=== PATIENT | male | born 1940 | race Caucasian/White ===

== ENCOUNTER 2020-07-15 07:20 | Inpatient (IN) | payer OTHER ==
[~2020-07-15] VITALS: Ht 182.9 cm; Wt 95.3 kg
[2020-07-15] VITALS (48 sets, daily range): BP systolic 98–146; BP diastolic 40–70
[2020-07-15] MEDS ORDERED: GLUC1TAB22 PO (10:14)
[2020-07-15] MEDS ORDERED: CHOL100079 OR ×2 (10:14)
[2020-07-15] MEDS ORDERED: CHOL20007 PO (10:14)
[2020-07-15] MEDS ORDERED: LOVA40TA72 PO (10:14)
[2020-07-15] MEDS ORDERED: CARV3.1240 PO (10:14)
[2020-07-15] MEDS ORDERED: LISI2.5T47 PO (10:14)
[2020-07-15] MEDS ORDERED: METF-370 PO (10:14)
[2020-07-15] MEDS ORDERED: ASPI325T4 PO (10:14)
[2020-07-15] MEDS ORDERED: hydrALAZINE HCL 20 MG/ML VL IV PRN (11:30)
[2020-07-15] MEDS ORDERED: PANTOPRAZOLE 40 MG TAB PO ONE (11:30)
[2020-07-15] MEDS ORDERED: DEXTROSE (50%) 50ML SYRG IV PRN (11:30)
[2020-07-15] MEDS ORDERED: SODIUM CHLORIDE 0.9% 1,000 ML IV SCH (11:30)
[2020-07-15] MEDS: InsuLIN REG 1unit/0.01ml Soln (100units/ml) SC SCH ×3 (11:30→21:16)
[2020-07-15] MEDS ORDERED: ALBUTEROL SULF 2.5 MG/0.5ML(0.5%) NEB SOLN NEB PRN (11:30)
[2020-07-15] MEDS ORDERED: ASPirin 81 mg TAB PO ONE (11:30)
[2020-07-15] MEDS ORDERED: FUROSEMIDE 20 MG TAB PO ONE (11:45)
[2020-07-15] MEDS ORDERED: POTASSIUM CHL 10 Meq TABLET PO ONE (11:45)
[2020-07-15] MEDS ORDERED: metFORMIN HYDROCHLORIDE 500 MG TAB PO ONE (11:45)
[2020-07-15] MEDS: DOPamine 1600MCG/ML D5W 250 ML IV SCH (12:16)
[2020-07-15] MEDS: ACCU-CHEK COMFORT CURVE STRIP VI SCH ×3 (12:17→21:16)
[2020-07-15] MEDS ORDERED: ASPI-498 PO (16:31)
[2020-07-15] MEDS ORDERED: LATA0.0020 RIGHTEYE (16:33)
[2020-07-15] MEDS ORDERED: TIMO0.5S32 EACHEYE (16:33)
[2020-07-15] MEDS ORDERED: IOHEXOL 350 MG/ML 100ML IJ ONE (17:33)
[2020-07-15] MEDS ORDERED: LIDOCAINE 2%HCL (LOCAL ANESTH.) INJ 20ML MDV ONE (17:33)
[2020-07-15] MEDS ORDERED: metFORMIN HYDROCHLORIDE 500 MG TAB PO SCH (18:00)
[2020-07-15 18:09] LABS: INR 1.04 (0.9-1.15)
[2020-07-15] MEDS ORDERED: ANGIOMAX 250 MG VIAL IV ONE (18:09)
[2020-07-15] MEDS ORDERED: fentaNYL CITRATE 100 MCG/2 ML VL ONE (18:10)
[2020-07-15] MEDS ORDERED: MIDAZOLAM HCL 1MG/1ML-2 ML VIAL ONE (18:10)
[2020-07-15] MEDS ORDERED: SODIUM CHL 0.9% 50 ML ONE (18:10)
[2020-07-15] MEDS ORDERED: VERAPAMIL 2.5MG/ML INJ 2ML VIAL IV ONE (18:10)
[2020-07-15] MEDS ORDERED: HEPARIN SODIUM (PORCINE) 5000 UNITS/ML 1ML VIAL ONE (18:10)
[2020-07-15] MEDS: ATORVASTATIN 20 MG TAB PO SCH (21:15)
[2020-07-16] VITALS (38 sets, daily range): BP systolic 93–153; BP diastolic 14–105
[2020-07-16] MEDS: DOPamine 1600MCG/ML D5W 250 ML IV SCH ×2 (01:43→11:45)
[2020-07-16 05:51] LABS: Basophils # (auto) 0.1 10 ^3/uL (0-0.2); Basophils % (auto) 0.9 % (0.0-2.0); Eosinophils # (auto) 0.5 10 ^3/uL (0-0.8); Eosinophils % (auto) 6.2 % (0.0-7.0); Hematocrit 45.2 % (41.0-53.0); Hemoglobin 15.4 g/dL (13.5-17.5); Lymphocytes # (auto) 1.5 10 ^3/uL (0.4-5.4); Lymphocytes % (auto) 18.4 % (10.0-50.0); Mean Corpuscular Hemoglobin 33.9 pg (28.0-32.0); Mean Corpuscular Hgb Conc. 34.1 g/dL (32.0-36.0); Mean Corpuscular Volume 99.5 fL (80.0-100.0); Monocytes # (auto) 0.6 10 ^3/uL (0-1.3); Monocytes % (auto) 7.4 % (0.0-12.0); Neutrophils # (auto) 5.6 10 ^3/uL (1.6-8.6); Neutrophils % (auto) 67.1 % (37.0-80.0); Nucleated Red Blood Cells % 0.2 %; Platelet Count (auto) 186 10^3/uL (140-450); Red Blood Cells 4.54 10^6/uL (4.5-5.90); Red Cell Distribution Width 14.6 % (11.8-14.3); White Blood Cell 8.3 10^3/uL (4.4-10.8)
[2020-07-16 06:09] LABS: Potassium 4.4 mmol/L (3.5-5.1)
[2020-07-16] MEDS: InsuLIN REG 1unit/0.01ml Soln (100units/ml) SC SCH ×4 (06:09→18:38)
[2020-07-16] MEDS: ACCU-CHEK COMFORT CURVE STRIP VI SCH ×4 (06:09→21:33)
[2020-07-16 06:21] LABS: Albumin 3.4 g/dL (3.4-5.0); BUN/Creatinine Ratio 17.2; Bilirubin, Total 2.4 mg/dL (0.2-1.0); Calcium 8.4 mg/dL (8.5-10.1); Total Protein 6.2 g/dL (6.4-8.2)
[2020-07-16] MEDS: POTASSIUM CHL 10 Meq TABLET PO SCH (09:23)
[2020-07-16] MEDS: ASPirin 81 mg TAB PO SCH (09:23)
[2020-07-16] MEDS: SOTALOL HCL 80 MG TAB PO SCH ×2 (09:24→21:32)
[2020-07-16] MEDS: PANTOPRAZOLE 40 MG TAB PO SCH (09:24)
[2020-07-16] MEDS: FUROSEMIDE 20 MG TAB PO SCH (09:25)
[2020-07-16] MEDS: CHOLECALCIFEROL (VITD3) 1,000UNIT=25mCg TAB PO SCH (09:25)
[2020-07-16] MEDS ORDERED: HEPARIN SODIUM (PORCINE) 5000 UNITS/ML 1ML VIAL ONE (21:18)
[2020-07-16] MEDS: ATORVASTATIN 20 MG TAB PO SCH (21:32)
[2020-07-16] MEDS: HEPARIN SODIUM (PORCINE) 5000 UNITS/ML 1ML VIAL SC SCH (21:35)
[2020-07-17] VITALS (15 sets, daily range): BP systolic 99–133; BP diastolic 40–99
[2020-07-17] MEDS: DOPamine 1600MCG/ML D5W 250 ML IV SCH ×2 (05:36→20:22)
[2020-07-17] MEDS: ACCU-CHEK COMFORT CURVE STRIP VI SCH ×4 (06:40→22:00)
[2020-07-17] MEDS: InsuLIN REG 1unit/0.01ml Soln (100units/ml) SC SCH ×4 (06:40→21:27)
[2020-07-17] MEDS: ASPirin 81 mg TAB PO SCH (09:35)
[2020-07-17] MEDS: POTASSIUM CHL 10 Meq TABLET PO SCH (09:35)
[2020-07-17] MEDS: CHOLECALCIFEROL (VITD3) 1,000UNIT=25mCg TAB PO SCH (09:36)
[2020-07-17] MEDS: PANTOPRAZOLE 40 MG TAB PO SCH (09:36)
[2020-07-17] MEDS: FUROSEMIDE 20 MG TAB PO SCH (09:37)
[2020-07-17] MEDS: SOTALOL HCL 80 MG TAB PO SCH ×3 (10:00→21:11)
[2020-07-17] MEDS: HEPARIN SODIUM (PORCINE) 5000 UNITS/ML 1ML VIAL SC SCH ×2 (10:00→21:13)
[2020-07-17 16:04] LABS: BUN/Creatinine Ratio 17.5; Calcium 8.8 mg/dL (8.5-10.1); Magnesium 2.5 mg/dL (1.6-2.6); Potassium 4.9 mmol/L (3.5-5.1)
[2020-07-17] MEDS: ATORVASTATIN 20 MG TAB PO SCH (21:12)
[2020-07-18] VITALS (17 sets, daily range): BP systolic 94–140; BP diastolic 39–87
[2020-07-18] MEDS: InsuLIN REG 1unit/0.01ml Soln (100units/ml) SC SCH ×4 (07:00→21:28)
[2020-07-18] MEDS: ACCU-CHEK COMFORT CURVE STRIP VI SCH ×4 (07:17→21:28)
[2020-07-18 07:21] LABS: Basophils # (auto) 0.1 10 ^3/uL (0-0.2); Lymphocytes # (auto) 2.4 10 ^3/uL (0.4-5.4); Monocytes # (auto) 0.7 10 ^3/uL (0-1.3); Neutrophils # (auto) 4.8 10 ^3/uL (1.6-8.6); White Blood Cell 8.5 10^3/uL (4.4-10.8)
[2020-07-18 07:24] LABS: Albumin 3.4 g/dL (3.4-5.0); Bilirubin, Direct 0.5 mg/dL (0-0.2); Eosinophils # (auto) 0.5 10 ^3/uL (0-0.8); Eosinophils % (auto) 6.1 % (0.0-7.0); Hematocrit 43.5 % (41.0-53.0); Lymphocytes % (auto) 28.1 % (10.0-50.0); Mean Corpuscular Hemoglobin 34.2 pg (28.0-32.0); Mean Corpuscular Hgb Conc. 34.5 g/dL (32.0-36.0); Monocytes % (auto) 8.2 % (0.0-12.0); Neutrophils % (auto) 56.6 % (37.0-80.0); Nucleated Red Blood Cells % 0.2 %; Platelet Count (auto) 170 10^3/uL (140-450); Potassium 4.1 mmol/L (3.5-5.1); Red Blood Cells 4.39 10^6/uL (4.5-5.90); Red Cell Distribution Width 14.1 % (11.8-14.3)
[2020-07-18 07:27] LABS: BUN/Creatinine Ratio 19.3; Total Protein 6.4 g/dL (6.4-8.2)
[2020-07-18 07:33] LABS: INR 1.03 (0.9-1.15); Partial Thromboplastin Time 27.2 sec (23.0-31.2)
[2020-07-18] MEDS: ASPirin 81 mg TAB PO SCH (09:32)
[2020-07-18] MEDS: POTASSIUM CHL 10 Meq TABLET PO SCH (09:41)
[2020-07-18] MEDS: SOTALOL HCL 80 MG TAB PO SCH ×2 (09:41→21:25)
[2020-07-18] MEDS: FUROSEMIDE 20 MG TAB PO SCH (09:42)
[2020-07-18] MEDS: CHOLECALCIFEROL (VITD3) 1,000UNIT=25mCg TAB PO SCH (09:42)
[2020-07-18] MEDS: PANTOPRAZOLE 40 MG TAB PO SCH (09:42)
[2020-07-18] MEDS: DOPamine 1600MCG/ML D5W 250 ML IV SCH (09:43)
[2020-07-18] MEDS: HEPARIN SODIUM (PORCINE) 5000 UNITS/ML 1ML VIAL SC SCH ×2 (09:43→21:27)
[2020-07-18] MEDS: ATORVASTATIN 20 MG TAB PO SCH (21:25)
[2020-07-19] VITALS (15 sets, daily range): BP systolic 85–140; BP diastolic 34–99
[2020-07-19] MEDS: DOPamine 1600MCG/ML D5W 250 ML IV SCH ×2 (00:48→14:35)
[2020-07-19 06:01] LABS: Basophils # (auto) 0.1 10 ^3/uL (0-0.2); Basophils % (auto) 1.3 % (0.0-2.0); Eosinophils # (auto) 0.5 10 ^3/uL (0-0.8); Hematocrit 44.1 % (41.0-53.0); Hemoglobin 15.2 g/dL (13.5-17.5); Lymphocytes # (auto) 2.7 10 ^3/uL (0.4-5.4); Lymphocytes % (auto) 31.6 % (10.0-50.0); Mean Corpuscular Hgb Conc. 34.5 g/dL (32.0-36.0); Mean Corpuscular Volume 98.7 fL (80.0-100.0); Monocytes # (auto) 0.7 10 ^3/uL (0-1.3); Monocytes % (auto) 7.7 % (0.0-12.0); Neutrophils # (auto) 4.6 10 ^3/uL (1.6-8.6); Neutrophils % (auto) 53.4 % (37.0-80.0); Nucleated Red Blood Cells % 0.1 %; Platelet Count (auto) 179 10^3/uL (140-450); Red Blood Cells 4.47 10^6/uL (4.5-5.90); Red Cell Distribution Width 14.8 % (11.8-14.3); White Blood Cell 8.7 10^3/uL (4.4-10.8)
[2020-07-19 06:25] LABS: Potassium 4.5 mmol/L (3.5-5.1)
[2020-07-19 06:35] LABS: BUN/Creatinine Ratio 18.2; Calcium 9.2 mg/dL (8.5-10.1)
[2020-07-19] MEDS: InsuLIN REG 1unit/0.01ml Soln (100units/ml) SC SCH ×4 (06:42→21:21)
[2020-07-19] MEDS: ACCU-CHEK COMFORT CURVE STRIP VI SCH ×4 (06:42→21:21)
[2020-07-19] MEDS: FUROSEMIDE 20 MG TAB PO SCH (08:31)
[2020-07-19] MEDS: ASPirin 81 mg TAB PO SCH (08:31)
[2020-07-19] MEDS: PANTOPRAZOLE 40 MG TAB PO SCH (08:31)
[2020-07-19] MEDS: POTASSIUM CHL 10 Meq TABLET PO SCH (08:31)
[2020-07-19] MEDS: SOTALOL HCL 80 MG TAB PO SCH ×2 (08:31→21:20)
[2020-07-19] MEDS: HEPARIN SODIUM (PORCINE) 5000 UNITS/ML 1ML VIAL SC SCH ×2 (08:32→21:20)
[2020-07-19] MEDS: CHOLECALCIFEROL (VITD3) 1,000UNIT=25mCg TAB PO SCH (08:32)
[2020-07-19] MEDS: ATORVASTATIN 20 MG TAB PO SCH (21:20)
[2020-07-20] VITALS (18 sets, daily range): BP systolic 90–146; BP diastolic 42–116
[2020-07-20] MEDS: DOPamine 1600MCG/ML D5W 250 ML IV SCH (05:14)
[2020-07-20 05:58] LABS: Basophils # (auto) 0 10 ^3/uL (0-0.2); Basophils % (auto) 0.4 % (0.0-2.0); Eosinophils # (auto) 0.5 10 ^3/uL (0-0.8); Hematocrit 45.8 % (41.0-53.0); Hemoglobin 15.9 g/dL (13.5-17.5); Lymphocytes # (auto) 3.1 10 ^3/uL (0.4-5.4); Lymphocytes % (auto) 34.5 % (10.0-50.0); Mean Corpuscular Hemoglobin 34.2 pg (28.0-32.0); Mean Corpuscular Hgb Conc. 34.7 g/dL (32.0-36.0); Mean Corpuscular Volume 98.6 fL (80.0-100.0); Monocytes # (auto) 0.7 10 ^3/uL (0-1.3); Monocytes % (auto) 8.3 % (0.0-12.0); Neutrophils # (auto) 4.5 10 ^3/uL (1.6-8.6); Neutrophils % (auto) 50.8 % (37.0-80.0); Nucleated Red Blood Cells % 0.1 %; Platelet Count (auto) 189 10^3/uL (140-450); Red Blood Cells 4.65 10^6/uL (4.5-5.90); Red Cell Distribution Width 14.5 % (11.8-14.3); White Blood Cell 8.9 10^3/uL (4.4-10.8)
[2020-07-20] MEDS: ACCU-CHEK COMFORT CURVE STRIP VI SCH ×4 (06:13→22:00)
[2020-07-20] MEDS: InsuLIN REG 1unit/0.01ml Soln (100units/ml) SC SCH ×4 (06:13→22:00)
[2020-07-20 06:23] LABS: BUN/Creatinine Ratio 20.3; Calcium 9.2 mg/dL (8.5-10.1); Potassium 4.4 mmol/L (3.5-5.1)
[2020-07-20] MEDS: ASPirin 81 mg TAB PO SCH (08:59)
[2020-07-20] MEDS: POTASSIUM CHL 10 Meq TABLET PO SCH (08:59)
[2020-07-20] MEDS: SOTALOL HCL 80 MG TAB PO SCH ×2 (08:59→22:43)
[2020-07-20] MEDS: FUROSEMIDE 20 MG TAB PO SCH (08:59)
[2020-07-20] MEDS: PANTOPRAZOLE 40 MG TAB PO SCH (09:00)
[2020-07-20] MEDS: CHOLECALCIFEROL (VITD3) 1,000UNIT=25mCg TAB PO SCH (09:00)
[2020-07-20] MEDS: HEPARIN SODIUM (PORCINE) 5000 UNITS/ML 1ML VIAL SC SCH ×2 (09:00→22:00)
[2020-07-20] MEDS: SODIUM CHLORIDE 0.9% 1,000 ML IV SCH ×2 (20:15→22:00)
[2020-07-20] MEDS: ATORVASTATIN 20 MG TAB PO SCH (22:00)
[2020-07-21] VITALS (22 sets, daily range): BP systolic 107–156; BP diastolic 44–77
[2020-07-21 05:42] LABS: Basophils # (auto) 0.1 10 ^3/uL (0-0.2); Basophils % (auto) 1.2 % (0.0-2.0); Eosinophils # (auto) 0.5 10 ^3/uL (0-0.8); Eosinophils % (auto) 4.9 % (0.0-7.0); Hemoglobin 15.5 g/dL (13.5-17.5); Lymphocytes # (auto) 2.6 10 ^3/uL (0.4-5.4); Lymphocytes % (auto) 26.3 % (10.0-50.0); Mean Corpuscular Hemoglobin 34.1 pg (28.0-32.0); Mean Corpuscular Hgb Conc. 34.4 g/dL (32.0-36.0); Mean Corpuscular Volume 99.1 fL (80.0-100.0); Monocytes # (auto) 0.9 10 ^3/uL (0-1.3); Monocytes % (auto) 8.9 % (0.0-12.0); Neutrophils # (auto) 5.7 10 ^3/uL (1.6-8.6); Neutrophils % (auto) 58.7 % (37.0-80.0); Nucleated Red Blood Cells % 0.1 %; Platelet Count (auto) 200 10^3/uL (140-450); Red Blood Cells 4.54 10^6/uL (4.5-5.90); Red Cell Distribution Width 14.1 % (11.8-14.3); White Blood Cell 9.7 10^3/uL (4.4-10.8)
[2020-07-21 05:56] LABS: INR 1.07 (0.9-1.15); Partial Thromboplastin Time 25.4 sec (23.0-31.2)
[2020-07-21 06:19] LABS: Albumin 3.3 g/dL (3.4-5.0); Potassium 4.4 mmol/L (3.5-5.1)
[2020-07-21 06:22] LABS: BUN/Creatinine Ratio 20.8; Bilirubin, Total 2.3 mg/dL (0.2-1.0); Calcium 8.7 mg/dL (8.5-10.1); Magnesium 2.4 mg/dL (1.6-2.6); Total Protein 6.2 g/dL (6.4-8.2)
[2020-07-21] MEDS: InsuLIN REG 1unit/0.01ml Soln (100units/ml) SC SCH ×2 (06:52→12:04)
[2020-07-21] MEDS: ACCU-CHEK COMFORT CURVE STRIP VI SCH ×2 (06:52→11:57)
[2020-07-21] MEDS: DOPamine 1600MCG/ML D5W 250 ML IV SCH ×2 (07:38→11:27)
[2020-07-21] MEDS ORDERED: MIDAZOLAM HCL 1MG/1ML-2 ML VIAL ONE ×2 (08:14→12:50)
[2020-07-21] MEDS ORDERED: fentaNYL CITRATE 100 MCG/2 ML VL ONE ×2 (08:14→12:50)
[2020-07-21] MEDS ORDERED: LIDOCAINE 2%HCL (LOCAL ANESTH.) INJ 20ML MDV ONE ×2 (08:51→09:59)
[2020-07-21] MEDS ORDERED: VANCOMYCIN HCL 1000 MG VL ONE (09:32)
[2020-07-21] MEDS ORDERED: ceFAZolin 1GM/50ML 50 ML IV ONE (09:32)
[2020-07-21] MEDS ORDERED: BACITRACIN INJ 50000 UNIT VIAL ONE (09:33)
[2020-07-21] MEDS ORDERED: VANCOMYCIN 750mg/250ml 250 ML IV STA (09:33)
[2020-07-21] MEDS: PANTOPRAZOLE 40 MG TAB PO SCH (10:00)
[2020-07-21] MEDS: SOTALOL HCL 80 MG TAB PO SCH (10:00)
[2020-07-21] MEDS: FUROSEMIDE 20 MG TAB PO SCH (10:00)
[2020-07-21] MEDS: POTASSIUM CHL 10 Meq TABLET PO SCH (10:00)
[2020-07-21] MEDS: ASPirin 81 mg TAB PO SCH (10:00)
[2020-07-21] MEDS: CHOLECALCIFEROL (VITD3) 1,000UNIT=25mCg TAB PO SCH (10:00)
[2020-07-21] MEDS ORDERED: IOHEXOL 350 MG/ML 100ML IJ ONE (10:05)
[2020-07-21] MEDS ORDERED: SODIUM CHLORIDE 0.9% 1,000 ML IV SCH (11:15)
[2020-07-21] MEDS ORDERED: SOTA80TA20 PO (11:18)
[2020-07-21] MEDS ORDERED: MEX150C PO (11:18)
[2020-07-21] MEDS: HEPARIN SODIUM (PORCINE) 5000 UNITS/ML 1ML VIAL SC SCH (11:49)
[2020-07-21] MEDS ORDERED: ANGIOMAX 250 MG VIAL IV ONE (12:50)
[2020-07-21] MEDS ORDERED: VERAPAMIL 2.5MG/ML INJ 2ML VIAL IV ONE (12:50)
[2020-07-21] MEDS ORDERED: SODIUM CHL 0.9% 0 ML ONE (12:50)
[2020-07-21] MEDS ORDERED: VANCOMYCIN 500 MG in D5W 5% 100 ML IV ONE (17:00)
[2020-07-21] MEDS ORDERED: DOXYCYCLINE 100 MG TAB/CAP PO SCH (22:00)
[2020-07-21] MEDS ORDERED: MEXILETINE HYDROCHLORIDE 150 MG CAP PO ONE (22:00)
== END 2020-07-21 17:50 | disposition home health service (06) | DRG 224 ==
LOC: DOU IN ICU 09:13
PROVIDERS: ADMIT Internal Medicine; ATTEND Internal Medicine
PROC: B2111ZZ Fluoroscopy of Multiple Coronary Arteries using Low Osmolar Contrast (ICD-10-PCS; principal; 2020-07-15)
PROC: 4A023N7 Measurement of Cardiac Sampling and Pressure, Left Heart, Percutaneous Approach (ICD-10-PCS; 2020-07-15)
PROC: 4A023FZ Measurement of Cardiac Rhythm, Percutaneous Approach (ICD-10-PCS; 2020-07-21)
PROC: 4A0234Z Measurement of Cardiac Electrical Activity, Percutaneous Approach (ICD-10-PCS; 2020-07-21)
PROC: 02HK3KZ Insertion of Defibrillator Lead into Right Ventricle, Percutaneous Approach (ICD-10-PCS; 2020-07-21)
PROC: 0JH608Z Insertion of Defibrillator Generator into Chest Subcutaneous Tissue and Fascia, Open Approach (ICD-10-PCS; 2020-07-21)
PROC: 02H63KZ Insertion of Defibrillator Lead into Right Atrium, Percutaneous Approach (ICD-10-PCS; 2020-07-21)
PROC: B5171ZZ Fluoroscopy of Left Subclavian Vein using Low Osmolar Contrast (ICD-10-PCS; 2020-07-21)
PROC: 3E0132A Introduction of Anti-Infective Envelope into Subcutaneous Tissue, Percutaneous Approach (ICD-10-PCS; 2020-07-21)
DX: I47.1 Supraventricular tachycardia (principal); J96.01 Acute respiratory failure with hypoxia; I50.31 Acute diastolic (congestive) heart failure; I13.0 Hypertensive heart and chronic kidney disease with heart failure and stage 1 through stage 4 chronic kidney disease, or unspecified chronic kidney disease; J98.11 Atelectasis; J91.8 Pleural effusion in other conditions classified elsewhere; I49.3 Ventricular premature depolarization; E78.5 Hyperlipidemia, unspecified; M85.80 Other specified disorders of bone density and structure, unspecified site; G47.30 Sleep apnea, unspecified; N18.31 Chronic kidney disease, stage 3a; E11.22 Type 2 diabetes mellitus with diabetic chronic kidney disease; I25.10 Atherosclerotic heart disease of native coronary artery without angina pectoris; Z95.5 Presence of coronary angioplasty implant and graft; Z95.810 Presence of automatic (implantable) cardiac defibrillator
CPT/HCPCS: 36415; 71045; 80048; 80053; 80076; 82962; 83735; 85025; 85610; 85730; 87081; 93458; 93619; 99152; 99153; G0378; J0690; J2250; J7060

== ENCOUNTER 2023-07-09 08:13 | Inpatient (IN) | payer OTHER ==
[~2023-07-09] VITALS: Ht 182.9 cm; Wt 94.2 kg
[~2023-07-09 08:13] MED LIST: ALEN70TA74 PO; ASPI-498 PO; CHOL20007 PO; FLUO0.1S12 OP; GLUC1TAB22 PO; LISI2.5T47 PO; LOVA40TA72 PO; METF-370 PO; MEXI150C15 PO; NETA0.02 OP; NETA1DRO OP; SOTA80TA20 PO; ZOST50IN IM; [UNRECOGNIZED DRUG - CODE] IM; [UNRECOGNIZED DRUG - CODE] IM; [UNRECOGNIZED DRUG - CODE] IM; [UNRECOGNIZED DRUG - CODE] IM
[2023-07-09] MEDS: ceFAZolin 2 GM/D5W50ml 50 ML IV ONE (08:23)
[2023-07-09] MEDS: ACETAMINOPHEN IV 100 ML IV ONE (08:24)
[2023-07-09] MEDS: TRANEXAMIC ACID 20 ML ONE (08:33)
[2023-07-09] MEDS ORDERED: MORPHINE SULF PF 5 MG/10 ML VIAL ONE (08:33)
[2023-07-09] MEDS ORDERED: KETOROLAC TROMETH 30 MG/ML 1ML VIAL ONE ×2 (08:33→09:32)
[2023-07-09] MEDS: VANCOMYCIN HCL 1000 MG VL ONE ×3 (08:35→09:39)
[2023-07-09] MEDS: CELECOXIB 100 MG CAP PO ONE (09:00)
[2023-07-09] MEDS: ACETAMINOPHEN IV 1000 MG/100ML (10MG/ML) IV ONE (09:00)
[2023-07-09] MEDS: PREGABALIN CAPSULE 75 MG CAP PO ONE (09:00)
[2023-07-09] MEDS ORDERED: GLYCOPYRROLATE 0.2 MG/ML 1ML VIAL ONE (09:32)
[2023-07-09] MEDS ORDERED: DexAMETHasone SOD PHOS 10MG/1ML VIAL INJ ONE (09:32)
[2023-07-09] MEDS ORDERED: PROPOFOL 10 MG/ML 20 ML IV ONE ×2 (09:32→10:31)
[2023-07-09] MEDS ORDERED: ONDANSETRON HCL 4 MG/2 ML VIAL ONE (09:32)
[2023-07-09] MEDS: DexAMETHasone SOD PHOS 4 MG/1ML SDV INJ ONE (09:33)
[2023-07-09] MEDS ORDERED: KETAMINE 50mg/ML 1ml syringe ONE (09:38)
[2023-07-09] MEDS ORDERED: ACETAMINOPHEN 325 MG TAB PO PRN (11:15)
[2023-07-09] MEDS ORDERED: OXYCODONE W/ ACETAMINOPHEN 5/325MG TABLET PO PRN (11:15)
[2023-07-09] MEDS: LACTATED RINGER'S 1,000 ML IV SCH (11:15)
[2023-07-09] MEDS ORDERED: HYDROmorphone HCL 2 MG/ML VL/or syr IV PRN ×2 (11:15→11:45)
[2023-07-09] MEDS ORDERED: ceFAZolin 1GM/50ML 50 ML IV SCH (11:15)
[2023-07-09] MEDS ORDERED: MORPHINE SULFATE INJ 2 MG/ml SYRG IV PRN (11:15)
[2023-07-09] MEDS ORDERED: NITROGLYCERIN 0.4 MG SL TAB SL PRN (11:15)
[2023-07-09 11:25] VITALS: O2SAT 95
[2023-07-09] MEDS ORDERED: NALOXONE HCL 0.4 MG/ML VIAL IV PRN (11:45)
[2023-07-09] MEDS ORDERED: hydrALAZINE HCL 20 MG/ML VL IV PRN (11:45)
[2023-07-09] MEDS ORDERED: ONDANSETRON HCL 4 MG/2 ML VIAL IV PRN (11:45)
[2023-07-09] MEDS ORDERED: oxyCODONE HCL 5MG TAB PO PRN (11:45)
[2023-07-09] MEDS ORDERED: LABETALOL HCL 5 MG/ML 4ML SYRINGE IV PRN (11:45)
[2023-07-09] MEDS ORDERED: ePHEDrine SULFATE 50 MG/ML AMP IV PRN (11:45)
[2023-07-09] MEDS ORDERED: fentaNYL CITRATE 100 MCG/2 ML VL IV PRN (11:45)
[2023-07-09] MEDS ORDERED: FLUMAZENIL 0.1 MG/ML INJ 10ML MDV IV PRN (11:45)
[2023-07-09] MEDS: MEXILETINE HYDROCHLORIDE 150 MG CAP PO SCH (14:00)
[2023-07-09] MEDS: SODIUM CHLOR 0.9% PF (SALINE LOCK) 10ML VIAL/SYR IV SCH (14:00)
[2023-07-09] MEDS: ceFAZolin 1GM/50ML 50 ML IV SCH (15:49)
[2023-07-09 17:00] VITALS: BP 115/85; PULSE 77; RESP 20; TEMP 98.1; O2SAT 94
[2023-07-09 17:46] VITALS: PULSE 77; RESP 20; O2SAT 94
[2023-07-09] MEDS: metFORMIN HYDROCHLORIDE 500 MG TAB PO SCH (18:00)
[2023-07-09 20:00] VITALS: PULSE 79; PULSE 85; RESP 20; O2SAT 92
[2023-07-09 21:00] VITALS: BP 120/71; PULSE 79; RESP 16; TEMP 97.9; O2SAT 92
[2023-07-09] MEDS ORDERED: DORZ2SOL18 EACHEYE (21:25)
[2023-07-10] VITALS (8 sets, daily range): BP systolic 116–137; BP diastolic 60–68; PULSE 70–87; RESP 16–20; TEMP 97.4–98.8; O2SAT 93–96
[2023-07-10] MEDS: SOTALOL HCL 80 MG TAB PO SCH (02:00)
[2023-07-10] MEDS: CIPROFLOXACIN HYDROCHLORIDE 250 MG TAB PO SCH (02:00)
[2023-07-10] MEDS: PRAVASTATIN SODIUM 20 MG TAB PO SCH (02:01)
[2023-07-10] MEDS: DOCUSATE SOD 100 MG CAP PO SCH (02:01)
[2023-07-10 07:36] LABS: Alanine Aminotransferase 14 U/L (7-40); Alkaline Phosphatase 58 U/L (46-116); Anion Gap 9 (5-15); Aspartate Aminotransferase 19 U/L (13-40); BUN/Creatinine Ratio 14.5 (10.0-20.0); Blood Urea Nitrogen 17 mg/dL (9-23); Calcium 8.9 mg/dL (8.5-10.1); Carbon Dioxide 23 mmol/L (20-30); Chloride 103 mmol/L (98-107); Glucose 214 mg/dL (74-106); Potassium 4.4 mmol/L (3.5-5.1); Sodium 135 mmol/L (136-145)
[2023-07-10 07:37] LABS: Albumin 4.1 g/dL (3.2-4.8); Bilirubin, Total 1.2 mg/dL (0.2-1.0); Total Protein 6.3 g/dL (5.7-8.2)
[2023-07-10] MEDS: LISINOPRIL 5 MG TAB PO SCH (11:15)
[2023-07-10] MEDS: OPTH OP SCH (11:17)
[2023-07-10] MEDS: FLUOROMETHOLONE 0.1% OP SCH (11:17)
[2023-07-10 12:44] LABS: Basophils # (auto) 0.1 10 ^3/uL (0-0.2); Eosinophils # (auto) 0 10 ^3/uL (0-0.8); Eosinophils % (auto) 0.1 % (0.0-7.0); Hematocrit 43.7 % (41.0-53.0); Lymphocytes # (auto) 0.9 10 ^3/uL (0.4-5.4); Monocytes # (auto) 0.9 10 ^3/uL (0-1.3); Monocytes % (auto) 5.8 % (0.0-12.0); Neutrophils # (auto) 13.4 10 ^3/uL (1.6-8.6)
[2023-07-10 12:46] LABS: Basophils % (auto) 0.6 % (0.0-2.0); Hemoglobin 14.5 g/dL (13.5-17.5); Lymphocytes % (auto) 5.9 % (10.0-50.0); Mean Corpuscular Hemoglobin 33.7 pg (28.0-32.0); Mean Corpuscular Hgb Conc. 33.1 g/dL (32.0-36.0); Mean Corpuscular Volume 101.8 fL (80.0-100.0); Neutrophils % (auto) 87.6 % (37.0-80.0); Nucleated Red Blood Cells % 0.1 %; Red Blood Cells 4.29 10^6/uL (4.5-5.90); Red Cell Distribution Width 13.8 % (11.8-14.3); White Blood Cell 15.3 10^3/uL (4.4-10.8)
[2023-07-10] MEDS: ENOXAPARIN SOD 40 MG/0.4 ML SYRINGE SC SCH (14:35)
[2023-07-10] MEDS: CALCIUM CARB 500 MG CHEW TAB PO SCH (23:35)
[2023-07-11] VITALS (7 sets, daily range): BP systolic 111–121; BP diastolic 48–68; PULSE 65–79; RESP 18; TEMP 98–98.3; O2SAT 92–94
[2023-07-11] MEDS: ONDANSETRON HCL 4 MG/2 ML VIAL IV PRN (05:00)
== END 2023-07-11 21:00 | DRG 470 ==
LOC: SUR 08:13 → TELE 11:10 → TELE-WESTW 17:25
PROVIDERS: ADMIT Orthopaedic Surgery Adult Reconstructive Orthopaedic Surgery; ATTEND Orthopaedic Surgery Adult Reconstructive Orthopaedic Surgery
PROC: 8E0YXBZ Computer Assisted Procedure of Lower Extremity (ICD-10-PCS; 2023-07-09)
PROC: 0SRC0J9 Replacement of Right Knee Joint with Synthetic Substitute, Cemented, Open Approach (ICD-10-PCS; principal; 2023-07-09 09:42)
DX: M17.11 Unilateral primary osteoarthritis, right knee (principal); I10 Essential (primary) hypertension; I25.10 Atherosclerotic heart disease of native coronary artery without angina pectoris; M81.0 Age-related osteoporosis without current pathological fracture; E11.9 Type 2 diabetes mellitus without complications; M65.861 Other synovitis and tenosynovitis, right lower leg; Z95.0 Presence of cardiac pacemaker; Z95.5 Presence of coronary angioplasty implant and graft
CPT/HCPCS: 36415; 73562; 80053; 82962; 85025; 86850; 86900; 86901; 97110; 97116; 97163; 97530; C1713; G0378; J0131; J1100; J1885; J2405; J2704